=== PATIENT | female | born 1975 | race Hispanic/Latino ===

== ENCOUNTER → 2017-01-26 | Outpatient (CLI) | payer OTHER ==
--- NOTE | 2017-01-28 10:32 | MAM ---
EXAM DESCRIPTION: 3D Screening BILATERAL CLINICAL HISTORY: 41 yearsFemaleSCREENING aunts with breast cancer, no personal history. No complaints. Perimenopausal. No HRT. COMPARISON: Baseline study at this facility.. No prior reports available. TECHNIQUE: Bilateral CC and MLO projection full-field images, 3-D tomosynthesis digital mammographic technique. Also bilateral synthesized CC/ MLO full-field images. CAD not utilized. FINDINGS: The breast parenchymal density pattern is: Heterogeneously dense breast tissue, which may obscure small masses. No skin thickening or nipple retraction focal asymmetry in the middle third of the left breast near the posterior nipple line, approximately 4.9 cm posterior to the nipple. No associated mass or calcifications. No focal, stellate mass or density, , and no suspicious microcalcifications bilaterally. No focal asymmetry in the left breast. IMPRESSION: BI-RADS CATEGORY: 0 - INCOMPLETE- Need additional imaging evaluation. FOLLOW-UP: Recall for additional imaging: Targeted ultrasound of the middle third of the right breast near the posterior nipple line in the region of interest. Written communication explaining the results and follow-up will be mailed to the patient and referring care provider. Electronically signed by: Ab Smith MD 01/28/2017 10:30 AM CDT Workstation: [id number]
== END | disposition home or self-care (01) ==
LOC: EDBD 15:00 → MAMMO 15:00
PROVIDERS: ATTEND Family Medicine
DX: Z12.31 Encounter for screening mammogram for malignant neoplasm of breast (principal)
CPT/HCPCS: 77063; G0202

== ENCOUNTER → 2017-02-23 | Outpatient (CLI) | payer OTHER ==
--- NOTE | 2017-02-23 16:35 | US ---
EXAM DESCRIPTION: Breast,Right CLINICAL HISTORY: 41 yearsFemaleABNORMAL MAMMO. Patient does not speak German. A wood milling machine tender was utilized.. COMPARISON: Digital 3-D tomosynthesis screening bilateral breast examination 01/26/2017. Other TECHNIQUE: Transcutaneous scanning of the right breast utilizing two-dimensional and Doppler modes. Scanning performed by the architectural design lecturer and Dr. Smith. FINDINGS: Well-defined oval-shaped hypoechoic mass with partially circumscribed and partially indistinct borders. Dimensions are 8.6 mm. Central echogenicity, but no vascular flow. Parallel orientation with enhancing posterior features. Surrounding tissue is heterogeneously fibroglandular and fatty. No discrete solid masses cysts or calcifications. No parenchymal edema. IMPRESSION: BI-RADS CATEGORY: 2 - BENIGN FINDINGS. FOLLOW UP: Return to routine digital bilateral screening, one year interval from January 2017. The findings and the follow-up plan were reviewed in person with the patient via wood milling machine tender after the examination. Written communication explaining the findings and follow-up, will be mailed to the patient and referring health care provider. According to the [employer], yearly mammograms are recommended starting at age 40 and continuing as long as a woman is in good health. Any breast change noted on a breast self-exam should be reported promptly to the patient's healthcare provider. Breast MRI is recommended for women with an approximately 20-25% or greater lifetime risk of breast cancer, including women with a strong family history of breast or ovarian cancer and women who have been treated for Hodgkin's disease. A negative mammographic report should not delay tissue diagnosis in patients with significant clinical history or physical findings. Extremely dense breast tissue limits the sensitivity of digital mammography. Electronically signed by: Ab Smith MD 02/23/2017 4:33 PM CDT
== END ==
LOC: MAMMO 13:42
PROVIDERS: ATTEND Family Medicine
DX: R92.8 Other abnormal and inconclusive findings on diagnostic imaging of breast (principal)